=== PATIENT | male | born 1940 | race Caucasian/White ===

== ENCOUNTER → 2016-09-13 | Outpatient (CLI) | payer BC ==
[~2016-09-13] MED LIST: ALLO100T PO; APIX1TAB3 PO; DVN80 PO; FLEC50TA20 PO; LEVO75TA5 PO; LUTE15CA PO; METO-217 PO; OFLO0.3S OP; PRAV20TA PO
[2016-09-13 09:46] LABS: BLOOD UREA NITROGEN 15 mg/dl (7-18); BUN/CREATININE RATIO 15.4 (10-20); CALCIUM 9.1 mg/dl (8.5-10.1); CARBON DIOXIDE 25 mmol/L (21-32); CHLORIDE 109 mmol/L (98-107); GLUCOSE 107 mg/dl (70-99); MAGNESIUM 2.7 mg/dl (1.8-2.4); POTASSIUM 4.6 mmol/L (3.5-5.1); SODIUM 143 mmol/L (136-145)
== END | disposition home or self-care (01) ==
LOC: C.LAB 07:11
PROVIDERS: ATTEND Internal Medicine
DX: I47.1 Supraventricular tachycardia (principal)

== ENCOUNTER → 2016-10-13 | Day surgery (SDC) | payer BC ==
[~2016-10-13] VITALS: Ht 190.5 cm; Wt 113.0 kg
[2016-10-13 07:00] VITALS: BP 145/92; PULSE 83; TEMP 36.5; O2SAT 100; Ht 190.5 cm; Wt 113.0 kg
[2016-10-13 07:30] VITALS: BP 134/90; PULSE 61; O2SAT 96
[2016-10-13 07:31] VITALS: BP 117/74; PULSE 55; O2SAT 96
[2016-10-13 07:35] VITALS: BP 130/74; PULSE 58; O2SAT 96
--- NOTE | 2016-10-13 07:54 | HISTORY & PHYSICAL EXAMINATION ---
DATE OF ADMISSION: 10/13/2016 TIME: 7:35 a.m. CHIEF COMPLAINT: Here for cardioversion. 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 He has been on anticoagulation therapy for greater than 4 weeks and has not missed any doses. He feels intermittent palpitations but denies chest pain or shortness of breath. He does have a history of intermittent palpitations over time, and therefore, there has been a concern for paroxysmal arrhythmias, although he has been persistently in atrial flutter more recently. He has had an outpatient echocardiogram with normal LV systolic function and a Holter monitor which demonstrated reasonable heart rate control, however, did become significantly tachycardic at times. REVIEW OF SYSTEMS: As above and also denies bleeding. PAST MEDICAL HISTORY: 1. Atrial flutter. 2. Paroxysmal SVT. 3. Hypertension. 4. Alcohol consumption. 5. Dyslipidemia. 6. BPH. 7. Arthritis. 8. Hypothyroidism. 9. Impaired fasting glucose. 10. Leg edema. 11. Pulmonary nodules. 12. Rosacea. 13. Tinnitus. 14. Tubular adenoma of the colon. FAMILY HISTORY: No known premature CAD. SOCIAL HISTORY: Quit smoking at the age of 32. Does consume alcohol daily. No drugs. and lives with his . Two daughters. 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 HOME MEDICATIONS: Include Eliquis 5 mg twice daily, allopurinol 100 mg daily, pravastatin 20 mg daily, valsartan 80 mg daily, levothyroxine 75 mcg daily, metoprolol succinate 75 mg daily. ALLERGIES: PENICILLIN AND CEPHALOSPORINS. PHYSICAL EXAMINATION: VITAL SIGNS: Temperature 36.5 degrees, heart rate 83 beats per minute, respiration rate 20, blood pressure 145/92 mmHg, oxygen saturation 100% on room air. GENERAL: No acute distress. He is alert. NECK: No appreciable JVD. CARDIAC: No ventricular heave. Irregularly irregular. Normal S1 and S2. No murmurs, rubs or gallops. LUNGS: Clear to auscultation bilaterally without wheezes, rales or rhonchi. ABDOMEN: Soft, nontender, nondistended. EXTREMITIES: No significant pitting edema. No cyanosis. Chart reviewed. Telemetry personally reviewed. Atrial fibrillation/flutter. ASSESSMENT AND PLAN: 1. Atrial flutter: Electrical cardioversion planned with likely discharge home on antiarrhythmic therapy if successful to prevent recurrence as he has had a history of paroxysmal symptomatic episodes in the past. Continue anticoagulation indefinitely. 2. Disposition: Discharge home following procedure if no complications.
--- NOTE | 2016-10-13 08:19 | Anesthesiology Progress Note ---
Anesthesia Post Op Note Date & Time Oct 13, 2016 at 08:19 Vital Signs Pain Intensity: 0 Vital Signs Past 12 Hours Date Time Temp Pulse Resp B/P Pulse Ox O2 Delivery O2 Flow Rate FiO2 10/13/16 08:00 62 16 125/56 96 Room Air 10/13/16 07:56 61 16 125/56 96 Room Air 10/13/16 07:56 59 16 125/56 96 Room Air 10/13/16 07:46 58 16 131/72 96 Room Air 10/13/16 07:36 58 16 126/72 96 Room Air 10/13/16 07:35 58 16 130/74 96 Nasal Cannula 4 10/13/16 07:31 55 16 117/74 96 Nasal Cannula 4 10/13/16 07:30 61 16 134/90 96 Nasal Cannula 4 10/13/16 07:00 36.5 83 20 145/92 100 Room Air Notes Mental Status: alert / awake / arousable, participated in evaluation Pt Amnestic to Procedure: Yes Nausea / Vomiting: adequately controlled Pain: adequately controlled Airway Patency, RR, SpO2: stable & adequate BP & HR: stable & adequate Hydration State: stable & adequate Anesthetic Complications: no major complications apparent
--- NOTE | 2016-10-13 08:26 | Cardiology Procedure Brief Nt ---
Preliminary Cardiology Note Procedure Date Oct 13, 2016. 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 Add Antiarrhythmic. Specimens none Complication(s) None Disposition
--- NOTE | 2016-10-13 08:34 | Discharge Instructions ---
Discharge Instructions Date of Service Oct 13, 2016. Visit Reason for Visit: Atrial flutter for planned cardioversion. Discharge Discharge Diagnosis / Problem: Atrial flutter successfully converted to sinus rhythm. Discharge Goals Goal(s): Therapeutic intervention Medications Restart Stopped Medication(s): Resume all of your usual medications and start flecainide 50 mg twice daily. Activity Recommendations Activity Limitations: per Instructions/Follow-up section Anesthesia . Post Anesthesia Instructions: If you have had General Anesthesia or IV Sedation: * Do not drive today. * Resume driving when surgeon permits. * Do not make important decisions or sign legal documents today. * Call surgeon for: 1. Temperature elevations greater than 101 degrees F. 2. Uncontrollable pain. 3. Excessive bleeding. 4. Persistent nausea and vomiting. 5. Medication intolerance (nausea, vomiting or rash). * For nausea and vomiting use only clear liquids such as: tea, soda, bouillon until nausea subsides, then gradually increase diet as tolerated. * If you have any concerns or questions, call your surgeon's office. If physician is unavailable and it is an emergency, call 911 or go to the nearest emergency room. . Instructions / Follow-Up Instructions / Follow-Up Follow up: 1. Appointment on October 31, 2016 at 11:15 AM with Luh De La Rosa PA-C in Dr. Adler's office. ACTIVITY RECOMMENDATIONS: * May resume driving tomorrow. SPECIAL CARE: * May apply burn ointment for skin irritation. * Please contact physician for any lightheadedness, dizziness or palpitations. Diet Recommendations Recommended Home Diet: resume previous diet Procedures Procedures Performed: Electrical Cardioversion. Pending Studies Studies pending at discharge: no Medical Emergencies . Who to Call and When: Medical Emergencies: If at any time you feel your situation is an emergency, please call 911 immediately. . 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 . "Provider Documentation" section prepared by Henri Nesbitt.
--- NOTE | 2016-10-13 10:53 | CARDIOVERSION ---
DATE OF OPERATION: 10/13/2016 DATE: 10/13/2016. TIME: 10:29 a.m. PRIMARY CARE PHYSICIAN: Dr. Ivory. PROCEDURE: Direct current cardioversion. CONSENT: Informed written consent was obtained. INDICATIONS: Atrial flutter. SEDATION: Provided by Dr. Renae of anesthesiology. PROCEDURAL DETAILS: After a time out was performed and he was sufficiently sedated, 150 joules were used in a synchronized fashion to successfully convert atrial flutter to sinus rhythm. He remained hemodynamically stable throughout. He was able to move all 4 extremities. There were no known complications. PLAN: 1. Continue anticoagulation for at least 4 weeks without interruption but plan is for indefinite anticoagulation at this point. 2. Flecainide 50 mg twice daily initiated given concern for paroxysmal atrial arrhythmias per patient history. 3. Continue rate controlling strategy as prescribed. 4. Follow up in the office on 10/31/2016 with ECG. I attest to the content of the Intraoperative Record and any orders documented therein. Any exceptio ns are noted below.
== END | disposition home or self-care (01) ==
LOC: C.CATH 06:50
PROVIDERS: ATTEND Internal Medicine Cardiovascular Disease
DX: I48.92 Unspecified atrial flutter (principal); I47.1 Supraventricular tachycardia; I10 Essential (primary) hypertension; E78.5 Hyperlipidemia, unspecified; N40.0 Benign prostatic hyperplasia without lower urinary tract symptoms; D12.6 Benign neoplasm of colon, unspecified; E03.9 Hypothyroidism, unspecified; Z79.01 Long term (current) use of anticoagulants; Z88.0 Allergy status to penicillin; Z88.1 Allergy status to other antibiotic agents

== ENCOUNTER → 2017-01-11 | Outpatient (CLI) | payer BC ==
[~2017-01-11] MED LIST changes: -FLEC50TA20 PO
[2017-01-11 09:50] LABS: ALT/SGPT 209 U/L (12-78); BLOOD UREA NITROGEN 13 mg/dl (7-18); BUN/CREATININE RATIO 14.1 (10-20); CARBON DIOXIDE 26 mmol/L (21-32); CHLORIDE 107 mmol/L (98-107); CHOLESTEROL 185 mg/dl (0-200); CREATININE 0.94 mg/dl (0.60-1.40); GLUCOSE 115 mg/dl (70-99); POTASSIUM 4.4 mmol/L (3.5-5.1); SODIUM 142 mmol/L (136-145); TRIGLYCERIDES 438 mg/dl (0-150)
[2017-01-11 09:52] LABS: ESTIMATED AVERAGE GLUCOSE 120 mg/dl; HA1C FLAG Normal (Normal)
[2017-01-11 09:56] LABS: CALCIUM 9.2 mg/dl (8.5-10.1)
[2017-01-11 10:00] LABS: ALB/GLOB RATIO 1.1 (0.9-2); ALKALINE PHOSPHATASE 85 U/L (45-117); AST/SGOT 227 U/L (15-37); CHOLESTEROL/HDL RATIO 5.8; HDL CHOLESTEROL 32 mg/dl
== END | disposition home or self-care (01) ==
LOC: C.LAB 07:02
PROVIDERS: ATTEND Internal Medicine
DX: R73.01 Impaired fasting glucose (principal)

== ENCOUNTER → 2017-01-16 | Outpatient (CLI) | payer BC ==
[2017-01-16 12:37] LABS: ALT/SGPT 175 U/L (12-78); BLOOD UREA NITROGEN 20 mg/dl (7-18); BUN/CREATININE RATIO 19.9 (10-20); CARBON DIOXIDE 23 mmol/L (21-32); CHLORIDE 108 mmol/L (98-107); GLUCOSE 93 mg/dl (70-99); POTASSIUM 4.5 mmol/L (3.5-5.1); SODIUM 141 mmol/L (136-145)
[2017-01-16 12:40] LABS: ALB/GLOB RATIO 1.1 (0.9-2); ALKALINE PHOSPHATASE 78 U/L (45-117); AST/SGOT 125 U/L (15-37)
[2017-01-16 12:42] LABS: CALCIUM 9.1 mg/dl (8.5-10.1)
== END | disposition home or self-care (01) ==
LOC: C.LAB 11:13
PROVIDERS: ATTEND Internal Medicine
DX: R74.8 Abnormal levels of other serum enzymes (principal)

== ENCOUNTER → 2017-01-23 | Outpatient (CLI) | payer BC ==
[2017-01-23 10:35] LABS: ALT/SGPT 196 U/L (12-78); BLOOD UREA NITROGEN 19 mg/dl (7-18); BUN/CREATININE RATIO 20.2 (10-20); CALCIUM 9.3 mg/dl (8.5-10.1); CARBON DIOXIDE 24 mmol/L (21-32); CHLORIDE 108 mmol/L (98-107); CREATININE 0.94 mg/dl (0.60-1.40); GLUCOSE 91 mg/dl (70-99); POTASSIUM 4.6 mmol/L (3.5-5.1); SODIUM 139 mmol/L (136-145)
[2017-01-23 10:38] LABS: ALB/GLOB RATIO 1.2 (0.9-2); ALKALINE PHOSPHATASE 79 U/L (45-117); AST/SGOT 105 U/L (15-37)
== END | disposition home or self-care (01) ==
LOC: C.LAB 09:13
PROVIDERS: ATTEND Internal Medicine
DX: R74.8 Abnormal levels of other serum enzymes (principal)

== ENCOUNTER → 2017-01-25 | Outpatient (CLI) | payer BC ==
--- NOTE | 2017-01-25 11:17 | DIAGNOSTIC IMAGING REPORT ---
ABDOMINAL ULTRASOUND, RIGHT UPPER QUADRANT HISTORY: Abnormal liver enzymes. COMPARISON: CT of the abdomen and pelvis August 21, 2014. FINDINGS: Hepatic echogenicity is slightly increased. No hepatic lesions are identified. There is no biliary ductal dilatation. The common bile duct measures 5 mm in caliber. The pancreatic body is normal. The head and tail are obscured. There is no right hydronephrosis. The gallbladder is normal. There are no gallstones. IMPRESSION: 1. No gallstones or biliary ductal dilatation. 2. Probable fatty infiltration of the liver. 3. Partially obscured pancreas. Electronically signed by: Dennis Álvarez M.D. 01/25/2017 11:16 AM Dictated Date/Time: 01/25/2017 11:15 AM
== END | disposition home or self-care (01) ==
LOC: C.ULTRBC 10:37
PROVIDERS: ATTEND Internal Medicine
DX: R74.8 Abnormal levels of other serum enzymes (principal)

== ENCOUNTER → 2017-02-10 | Outpatient (CLI) | payer BC ==
[2017-02-10 10:01] LABS: BASO % 0.6 %; BASO ABS # 0.03 K/uL (0-0.2); COMPLETE YES; EOS % 4.4 %; HEMATOCRIT 39.3 % (42-52); IG% 0.2 %; LYMPH % 31.1 %; LYMPH ABS # 1.61 K/uL (1.2-3.4); MEAN CELL VOLUME 100.3 fL (80-100); MEAN CORPUSCULAR HEMOGLOBIN 34.2 pg (25-34); MEAN CORPUSCULAR HGB CONC 34.1 g/dl (32-36); MEAN PLATELET VOLUME 11.1 fL (7.4-10.4); MONO % 12.5 %; NEUT % 51.2 %; PLATELET COUNT 166 K/uL (130-400); RED BLOOD COUNT 3.92 M/uL (4.7-6.1); WHITE BLOOD COUNT 5.18 K/uL (4.8-10.8)
[2017-02-10 10:10] LABS: INR 1.1 (0.9-1.1); PROTHROMBIN TIME (PATIENT) 11.9 SECONDS (9.0-12.0)
[2017-02-10 10:33] LABS: FERRITIN 169.4 ng/ml (8.0-388.0)
[2017-02-10 10:39] LABS: HEPATITIS B AB NEG
[2017-02-14 16:05] LABS: SM.RNP ANTIBODY <1.0 NEG AI (<1.0 NEG); Sm Antibody <1.0 NEG AI (<1.0 NEG)
== END | disposition home or self-care (01) ==
LOC: C.LAB 09:15
PROVIDERS: ATTEND Registered Nurse
DX: R74.8 Abnormal levels of other serum enzymes (principal)

== ENCOUNTER → 2017-08-04 | Outpatient (CLI) | payer BC ==
[2017-08-04 09:35] LABS: BASO % 0.5 %; BASO ABS # 0.03 K/uL (0-0.2); EOS % 2.1 %; EOS ABS # 0.13 K/uL (0-0.5); HEMATOCRIT 43.5 % (42-52); HEMOGLOBIN 14.9 g/dL (14.0-18.0); IG# 0.02 K/uL (0.00-0.02); LYMPH % 36.9 %; MEAN CELL VOLUME 101.9 fL (80-100); MEAN CORPUSCULAR HEMOGLOBIN 34.9 pg (25-34); MEAN CORPUSCULAR HGB CONC 34.3 g/dl (32-36); MEAN PLATELET VOLUME 11.5 fL (7.4-10.4); MONO ABS # 0.75 K/uL (0.11-0.59); NEUT % 48.2 %; PLATELET COUNT 166 K/uL (130-400); RED CELL DISTRIBUTION WIDTH CV 13.5 % (11.5-14.5); RED CELL DISTRIBUTION WIDTH SD 50.3 fL (36.4-46.3); WHITE BLOOD COUNT 6.23 K/uL (4.8-10.8)
[2017-08-04 09:57] LABS: HEMOGLOBIN A1C 5.5 % (4.5-5.6)
[2017-08-04 11:01] LABS: ALBUMIN 3.9 gm/dl (3.4-5.0); ALT/SGPT 42 U/L (12-78); AST/SGOT 39 U/L (15-37); BLOOD UREA NITROGEN 17 mg/dl (7-18); CARBON DIOXIDE 28 mmol/L (21-32); CHOLESTEROL 144 mg/dl (0-200); CREATININE 0.93 mg/dl (0.60-1.40); GLUCOSE 93 mg/dl (70-99); POTASSIUM 4.4 mmol/L (3.5-5.1); SODIUM 139 mmol/L (136-145); URIC ACID 7.1 mg/dl (2.6-7.2)
[2017-08-04 11:12] LABS: ALKALINE PHOSPHATASE 63 U/L (45-117); LDL CHOLESTEROL CALCULATED 72 mg/dl; TOTAL PROTEIN 7.8 gm/dl (6.4-8.2)
== END | disposition home or self-care (01) ==
LOC: C.LAB 07:30
PROVIDERS: ATTEND Internal Medicine
DX: Z51.81 Encounter for therapeutic drug level monitoring (principal); M10.9 Gout, unspecified; I10 Essential (primary) hypertension; E78.5 Hyperlipidemia, unspecified; E03.9 Hypothyroidism, unspecified; R73.01 Impaired fasting glucose; N40.1 Benign prostatic hyperplasia with lower urinary tract symptoms; R97.20 Elevated prostate specific antigen [PSA]; I48.92 Unspecified atrial flutter; Z79.01 Long term (current) use of anticoagulants; R74.8 Abnormal levels of other serum enzymes

== ENCOUNTER → 2017-08-21 | Day surgery (SDC) | payer BC ==
[~2017-08-21] VITALS: Ht 190.5 cm; Wt 113.6 kg
[~2017-08-21] MED LIST changes: +CYAN100073 PO; +LIDOCAINE HCL 2% 2 ML VIAL (20MG/ML) ONE; +PROP150T PO; +PROPOFOL IV EMULSION 10 MG/ML 20 ML VIAL IV ONE; +[UNRECOGNIZED DRUG - CODE]
[2017-08-21 07:02] VITALS: BP 132/64; PULSE 75; TEMP 36.4; O2SAT 100; Ht 190.5 cm; Wt 113.6 kg
[2017-08-21 07:27] VITALS: BP 142/76; PULSE 71; O2SAT 100
--- NOTE | 2017-08-21 07:28 | History & Physical Bridge Note ---
H&P Re-Evaluation Bridge Note: I have examined the patient, reviewed the History & Physical and in the interval since the performance of the History & Physical I have noted the following changes of clinical significance: No changes noted
[2017-08-21 07:30] VITALS: BP 149/86; PULSE 49; O2SAT 100
[2017-08-21 07:35] VITALS: BP 106/52; PULSE 50; O2SAT 100
--- NOTE | 2017-08-21 07:36 | Discharge Instructions ---
Discharge Instructions Procedure Procedure Date: Aug 21, 2017. Reason for Visit: A-Fib *Dr Tran Doing*. Discharge Discharge Date: Aug 21, 2017. Discharge Diagnosis: Atrial fibrillation Last Recorded Wt (Kilograms): 113.6 Anesthesia Post Anesthesia Instructions: If you have had General Anesthesia or IV Sedation: * Do not drive today. * Resume driving when surgeon permits. * Do not make important decisions or sign legal documents today. * Call surgeon for: 1. Temperature elevations greater than 101 degrees F. 2. Uncontrollable pain. 3. Excessive bleeding. 4. Persistent nausea and vomiting. 5. Medication intolerance (nausea, vomiting or rash). * For nausea and vomiting use only clear liquids such as: tea, soda, bouillon until nausea subsides, then gradually increase diet as tolerated. * If you have any concerns or questions, call your surgeon's office. If physician is unavailable and it is an emergency, call 911 or go to the nearest emergency room. Instructions Activity Recommendations: driving or machine use limit Return to School/Work: with the following limitations Recommended Home Diet: resume previous diet Allergies: Uncoded Allergies: PENICILLIN (Allergy, Unknown, ., 10/13/16) Provider Instructions No driving for 24 hours Follow Up Haroon Babb Recommendations: Call your doctor if: * Temperature above 101 degrees * Pain not relieved by pain medicine ordered * There is increased drainage or redness from any incision * You have any unanswered questions or concerns. Your Doctors Instructions noted above were prepared by provider Edward Tran. Patient Signature Section: Patient Instructions Signature Page Tj Elias Patient (or Guardian) Signature/Date: I have read and understand the instructions given to me by my caregivers. Caregiver/RN/Doctor Signature/Date: The above-named patient and/or guardian has received patient instructions on this date. + Original Patient Signature Page (only) stays with chart. Please make copy for patient.
--- NOTE | 2017-08-21 07:37 | Procedure Note ---
Procedure Note Date of Service Aug 21, 2017. Procedure Note Procedure performed: Cardioversion Indication: Atrial fibrillation Staff board worker: Blade Tran MD Procedure in detail: The patient was informed of the risks benefits and alternatives to the intended procedure. He understood such which proceed. He was taken to the cardiac catheterization suite holding area. A general anesthetic was administered by the Anesthesiology Service. Once appropriately anesthetized, the patient was cardioverted using 200 joules delivered in a biphasic fashion. This returned the patient to sinus rhythm. The patient tolerated procedure well, there were no immediate complications. Patient was neurologically intact subsequent to the procedure. Impression: Successful cardioversion from atrial fibrillation to normal sinus rhythm
[2017-08-21 08:14] VITALS: BP 108/60; PULSE 50; O2SAT 99
--- NOTE | 2017-08-21 08:58 | Anesthesiology Progress Note ---
Anesthesia Post Op Note Date & Time Aug 21, 2017 at 08:57 Vital Signs Pain Intensity: 0 Vital Signs Past 12 Hours Date Time Temp Pulse Resp B/P (MAP) Pulse Ox O2 Delivery O2 Flow Rate FiO2 08/21/17 08:14 50 16 108/60 (76) 99 Room Air 08/21/17 07:59 49 16 119/65 (83) 100 Room Air 08/21/17 07:49 48 16 96/52 (67) 100 Room Air 08/21/17 07:39 47 16 91/45 (60) 100 Room Air 08/21/17 07:35 50 16 106/52 100 Nasal Cannula 5 08/21/17 07:30 49 16 149/86 100 Nasal Cannula 5 08/21/17 07:27 71 16 142/76 100 Nasal Cannula 5 08/21/17 07:02 36.4 75 16 132/64 (86) 100 Room Air Notes Mental Status: alert / awake / arousable, participated in evaluation Pt Amnestic to Procedure: Yes Nausea / Vomiting: adequately controlled Pain: adequately controlled Airway Patency, RR, SpO2: stable & adequate BP & HR: stable & adequate Hydration State: stable & adequate Anesthetic Complications: no major complications apparent
== END | disposition home or self-care (01) ==
LOC: C.CATH 06:47
PROVIDERS: ATTEND Internal Medicine Clinical Cardiac Electrophysiology
DX: I48.91 Unspecified atrial fibrillation (principal); G47.33 Obstructive sleep apnea (adult) (pediatric); I48.92 Unspecified atrial flutter; I47.1 Supraventricular tachycardia; E78.5 Hyperlipidemia, unspecified; N40.0 Benign prostatic hyperplasia without lower urinary tract symptoms; M10.9 Gout, unspecified; M19.90 Unspecified osteoarthritis, unspecified site; K57.30 Diverticulosis of large intestine without perforation or abscess without bleeding; K64.4 Residual hemorrhoidal skin tags; I10 Essential (primary) hypertension; E03.9 Hypothyroidism, unspecified; Z79.01 Long term (current) use of anticoagulants; Z87.891 Personal history of nicotine dependence; Z83.3 Family history of diabetes mellitus